=== PATIENT | female | born 2005 | race Hispanic/Latino ===

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

== ENCOUNTER 2025-05-04 16:23 | Emergency (ER) | payer OTHER, SELFPAY | END 2025-05-04 18:45 | disposition home or self-care (01) | LOC: CSHERS 16:23 | DX: H66.93 Otitis media, unspecified, bilateral (principal) | CPT/HCPCS: 99282 ==